=== PATIENT | male | born 1965 | race Caucasian/White ===

== ENCOUNTER 2023-11-29 08:50 | Outpatient (CLI) | payer OTHER, MEDICAID ==
[2023-11-29] MEDS ORDERED: Iopamidol 300 61% 100 ML VIAL FS ONE (08:59)
== END 2023-11-29 08:51 | disposition home or self-care (01) ==
LOC: CSHCT 08:50
PROVIDERS: ATTEND Physician Assistant Medical
DX: K21.9 Gastro-esophageal reflux disease without esophagitis (principal); D50.9 Iron deficiency anemia, unspecified; R55 Syncope and collapse; K44.9 Diaphragmatic hernia without obstruction or gangrene; K40.90 Unilateral inguinal hernia, without obstruction or gangrene, not specified as recurrent; N32.89 Other specified disorders of bladder; N32.3 Diverticulum of bladder; N13.4 Hydroureter
CPT/HCPCS: 74178; Q9967